=== PATIENT | male | born 1995 | race Two or more races ===

== ENCOUNTER 2024-03-28 21:31 | Emergency (ER) | payer MEDICAID, OTHER ==
[~2024-03-28] VITALS: Ht 185.4 cm; Wt 106.8 kg
[2024-03-28 21:40] VITALS: BP 123/76; PULSE 89; RESP 16; TEMP 98.6
[2024-03-28] MEDS: BACITRACIN TOP OINT 1 UD PKG TOP ONE (23:10)
[2024-03-28 23:14] VITALS: O2SAT 98
== END 2024-03-28 23:43 | disposition home or self-care (01) ==
LOC: ER 21:31
DX: S61.011A Laceration without foreign body of right thumb without damage to nail, initial encounter (principal); W45.8XXA Other foreign body or object entering through skin, initial encounter; Y93.89 Activity, other specified; Y92.89 Other specified places as the place of occurrence of the external cause; Y99.8 Other external cause status
CPT/HCPCS: 12002